=== PATIENT | female | born 1990 | race Caucasian/White ===

== ENCOUNTER 2022-02-10 08:00 | Outpatient (CLI) | payer OTHER ==
[2022-02-10 16:42] LABS: BILIRUBIN,URINE NEGATIVE (NEGATIVE); GLUCOSE, URINE (UA) NEGATIVE (NEGATIVE); KETONES,URINE (UA) NEGATIVE (NEGATIVE); LEUKOCYTE ESTERASE, URINE NEGATIVE (NEGATIVE); NITRITE,URINE NEGATIVE (NEGATIVE); OCCULT BLOOD,URINE NEGATIVE (NEGATIVE); PROTEIN,URINE NEGATIVE (NEGATIVE); UROBILINOGEN,URINE 1 (NORMAL) E.U./dL (NORMAL)
[2022-02-10 16:47] LABS: CLARITY,URINE CLEAR (CLEAR)
[2022-02-10 17:02] LABS: BACTERIA,URINE Moderate /HPF (None Seen); RBC,URINE 0-5 /HPF (0-5); SQUAMOUS EPITHELIAL CELL,UR MOD Squamous (<= Few); WBC,URINE 0-3 /HPF (0-5)
[2022-02-11 00:21] LABS: CHLAMYDIA TRACHOMATIS DNA NEGATIVE (NEGATIVE); NEISSERIA GONORRHOEAE DNA NEGATIVE (NEGATIVE)
== END 2022-02-10 23:59 | disposition home or self-care (01) ==
LOC: LAB 08:00
PROVIDERS: ATTEND Nurse Practitioner
DX: Z32.01 Encounter for pregnancy test, result positive (principal)
CPT/HCPCS: 81001; 87086; 87491; 87591; 87661

== ENCOUNTER 2022-02-16 13:40 | Outpatient (CLI) | payer OTHER ==
--- NOTE | 2022-02-16 17:23 | Ultrasound Report ---
PROCEDURE: OB First Trimester INDICATIONS: POSITIVE TEST OUTSIDE/PRIOR DATING DATA: Last menstrual period (LMP): 12/01/2021. LMP-based estimated date of delivery (ELINA): 09/07/2022. First dating scan (date and location): 02/16/2022. Estimated date of delivery (ELINA) from first dating scan: 09/29/2022. TECHNIQUE: Real-time scanning was performed of the fetus and maternal pelvic organs, with image documentation. COMPARISON: None. FINDINGS: Embryo: Present with crown-rump length of 1.54 cm corresponding to a gestational age of 7 weeks 6 da ys. Heart rate: 166 bpm Measurement variability in dating: +/- 4 weeks by LMP, +/- 7 days by mean sac diameter (use before 6 weeks gestation if crown-rump length not able to be measured), +/- 5 days by crown-rump length (6-12 weeks gestation). Maternal organs: Left ovarian cyst / possible corpus luteal cyst measures 4.3 cm. IMPRESSION: Single living intrauterine with crown-rump length corresponding to a gestational age of 7 w eeks 6 days, discordant from clinical dates. Reviewed by: Kar Feliciano MD on 02/16/2022 5:22 PM PDT Approved by: Kar Feliciano MD on 02/16/2022 5:22 PM PDT Station ID: [id number]
== END 2022-02-16 13:41 | disposition home or self-care (01) ==
LOC: DI 13:40
PROVIDERS: ATTEND Nurse Practitioner
DX: Z34.90 Encounter for supervision of normal pregnancy, unspecified, unspecified trimester (principal); Z36.89 Encounter for other specified antenatal screening

== ENCOUNTER 2022-02-24 12:07 | Outpatient (CLI) | payer OTHER ==
[2022-02-24 12:29] LABS: BASOPHILS % (AUTO) 0.5 %; EOSINOPHILS # (AUTO) 0.2 10^3/uL (0.0-0.7); EOSINOPHILS % (AUTO) 2.2 %; HCT - HEMATOCRIT 39.5 % (37.0-47.0); HGB - HEMOGLOBIN 13.1 g/dL (12.0-16.0); LYMPHOCYTES # (AUTO) 1.9 10^3/uL (1.5-3.5); LYMPHOCYTES % (AUTO) 24.1 %; MEAN CORPUSCULAR HEMOGLOBIN 28.9 pg (27.0-31.0); MEAN CORPUSCULAR HGB CONC 33.2 g/dL (32.0-36.0); MEAN CORPUSCULAR VOLUME 87.2 fL (81.0-99.0); MEAN PLATELET VOLUME 11.1 fL (7.9-10.8); MONOCYTES # (AUTO) 0.5 10^3/uL (0.0-1.0); MONOCYTES % (AUTO) 6.8 %; NEUTROPHILS # (AUTO) 5.1 10^3/uL (1.5-6.6); NEUTROPHILS % (AUTO) 65.9 %; PLT - PLATELET COUNT 173 10^3/uL (130-450); RED BLOOD COUNT 4.53 10^6/uL (4.20-5.40); RED CELL DISTRIBUTION WIDTH 12.5 % (12.0-15.0); WHITE BLOOD COUNT 7.8 x10^3/uL (4.8-10.8)
[2022-02-25 03:09] LABS: HBsAG SCREEN Negative (Negative); HCV AB <0.1 s/co ratio (0.0-0.9)
[2022-02-25 04:08] LABS: HIV SCREEN 4TH GENERATION Non Reactive (Non Reactive)
[2022-02-25 05:11] LABS: RPR Non Reactive (Non Reactive)
[2022-02-25 07:09] LABS: VARICELLA-ZOSTER AB IGG 818 index (Immune >165)
== END 2022-02-24 12:08 | disposition home or self-care (01) ==
LOC: LAB 12:07
PROVIDERS: ATTEND Nurse Practitioner
DX: Z34.90 Encounter for supervision of normal pregnancy, unspecified, unspecified trimester (principal); Z36.89 Encounter for other specified antenatal screening
CPT/HCPCS: 36415; 85025; 86592; 86762; 86787; 86803; 86850; 86900; 86901; 87340; 87389

== ENCOUNTER 2022-04-20 08:00 | Outpatient (CLI) | payer OTHER ==
[2022-04-20 22:15] LABS: BACTERIAL VAGINOSIS DNA NEGATIVE (NEGATIVE); CANDIDA GLABRATA DNA NEGATIVE (NEGATIVE); CANDIDA GROUP DNA NEGATIVE (NEGATIVE); CANDIDA KRUSEI DNA NEGATIVE (NEGATIVE); TRICHOMONAS VAGINALIS DNA NEGATIVE (NEGATIVE)
== END 2022-04-20 23:59 | disposition home or self-care (01) ==
LOC: LAB.WC 08:00
PROVIDERS: ATTEND Obstetrics & Gynecology
DX: N89.8 Other specified noninflammatory disorders of vagina (principal)
CPT/HCPCS: 81514

== ENCOUNTER 2022-05-19 13:10 | Outpatient (CLI) | payer OTHER ==
[2022-05-23 12:09] LABS: AFP MOM See interpretation. (.); AFP VALUE 47.3 ng/mL (.); DIA MOM See interpretation. (.); DIA VALUE 124.54 pg/mL (.); DSR (BY AGE) 1 IN 570 (.); DSR (SECOND TRIMESTER) 1 IN See interpretation. (.); GESTAT. AGE METHOD As provided (.); HCG MOM See interpretation. (.); HCG VALUE 14622 mIU/mL (.); MATERNAL AGE AT EDD 31.5 yr (.); OPEN SPINA BIFIDA RISK 1 IN See interpretation. (.); RESULTS Report (.); TEST RESULTS See interpretation. (.); TRISOMY 18 RISK See interpretation. (.); UE3 MOM See interpretation. (.); UE3 VALUE 2.21 ng/mL (.)
== END 2022-05-19 13:11 | disposition home or self-care (01) ==
LOC: LAB 13:10
PROVIDERS: ATTEND Obstetrics & Gynecology
DX: Z34.90 Encounter for supervision of normal pregnancy, unspecified, unspecified trimester (principal)
CPT/HCPCS: 81511

== ENCOUNTER 2022-06-07 18:48 | Outpatient (CLI) | payer OTHER ==
--- NOTE | 2022-06-08 10:43 | Ultrasound Report ---
PROCEDURE: OB Detailed Eval INDICATIONS: SUPERVISION OF OUTSIDE/PRIOR DATING DATA: Last menstrual period (LMP): 12/01/2021. LMP-based estimated date of delivery (ELINA): 09/07/2022. First dating scan (date and location): 02/16/2022. Estimated date of delivery (ELINA) from first dating scan: 09/29/2022. The below data below was generated using the ultrasound ELINA of 09/29/2022 TECHNIQUE: Real-time scanning was performed of the fetus, with image documentation and biometric measurements. Endovaginal scanning: Not performed COMPARISON: 02/16/2022 FINDINGS: General: A single living intrauterine gestation is present. Presentation: Transverse Placenta: Placental position is anterior, without previa. Amniotic fluid index: 14.0 cm, normal for gestational age. heart rate: 158 beats per minute. Maternal cervical canal: 5.2 cm long; normal length is 2.5 cm or more. biometrics: Biparietal diameter: 5.9 cm, 24 weeks 1 day Head circumference: 22.8 cm, 24 weeks 6 days Abdominal circumference: 19.2 cm, 23 weeks 6 days Femur length: 4.1 cm, 23 weeks 1 day Estimated gestational age from initial scan: 23 weeks 5 days. Composite gestational age from present scan: 24 weeks 0 days Estimated weight and percentile: 621 g, 41st percentile Measurement variability in biometric dating: +/- 10 days from 12-20 weeks gestation, +/- 2 weeks from 20-30 weeks gestation, +/- 3 weeks at 30 weeks gestation or later. Anatomic survey: Neuro: Lateral ventricles not well visualized. Cisterna magna is normal at 3-11 mm. Cerebellum is no rmal in size and morphology. Nuchal skin fold: Normal at less than 6 mm between 14 and 20 weeks gestational age. Face: Nose and lips are normal. Profile not well visualized. Spine: No evidence for spina bifida. Heart: 4-chambered heart is present. Unremarkable left ventricular outflow tract. Right ventricular outflow tract not well visualized. Diaphragm: Not well visualized. Stomach: Left-sided stomach is present. Kidneys: No hydronephrosis. Normal is less than 5 mm in 2nd trimester, less than 7 mm in 3rd trimester. Cord: 3 vessel cord has orthotopic insertion. Bladder: Normal in size. Extremities: All 4 extremities are visualized. IMPRESSION: 1. Single living intrauterine . 2. lateral ventricles, profile, right ventricular outflow tract, and diaphragm are not well vis ualized. Attention on follow-up is recommended. 3. Estimated weight at the 41st percentile. Reviewed by: Kar Feliciano MD on 06/08/2022 10:42 AM [facility] Approved by: Kar Feliciano MD on 06/08/2022 10:42 AM PST Station ID: [id number]
== END 2022-06-07 18:49 | disposition home or self-care (01) ==
LOC: DI 18:48
PROVIDERS: ATTEND Obstetrics & Gynecology
DX: Z34.02 Encounter for supervision of normal first pregnancy, second trimester (principal); Z3A.24 24 weeks gestation of pregnancy

== ENCOUNTER 2022-08-08 13:25 | Outpatient (CLI) | payer OTHER ==
--- NOTE | 2022-08-08 18:30 | Ultrasound Report ---
PROCEDURE: OB F/U or Repeat INDICATIONS: EXCESSIVE WEIGHT GAIN IN OUTSIDE/PRIOR DATING DATA: Last menstrual period (LMP): 12/01/2021. LMP-based estimated date of delivery (ELINA): 09/07/2022. First dating scan (date and location): 02/16/2022. Estimated date of delivery (ELINA) from first dating scan: 09/07/2022. The below data below was generated using the working ELINA of 09/29/2022 TECHNIQUE: Real-time scanning was performed of the fetus, with image documentation and biometric measurements. Endovaginal scanning: None COMPARISON: None. FINDINGS: General: A single living intrauterine gestation is present. Presentation: Vertex Placenta: Placental position is anterior, without previa. Amniotic fluid index: 17.9 cm, 72nd percentile for gestational age. heart rate: 160 beats per minute. Maternal cervical canal: 4.0 cm long; normal length is 2.5 cm or more. biometrics: Biparietal diameter: 8.6 cm, 34 week 1 day Head circumference: 32.1 cm, 36 week 2 day Abdominal circumference: 31.0 cm, 35 week 0 day Femur length: 5.9 cm, 31 week 0 day Estimated gestational age from initial scan: 32 week 4 day Composite gestational age from present scan: 34 week 1 day Estimated weight and percentile: 2311.6 g, 81.9 percentile Measurement variability in biometric dating: +/- 10 days from 12-20 weeks gestation, +/- 2 weeks from 20-30 weeks gestation, +/- 3 weeks at 30 weeks gestation or more. Other: Not applicable. IMPRESSION: Single live intrauterine consistent with a 32 week 4 day gestation by current ultrasound Reviewed by: Santiago Johnson MD on 08/08/2022 5:29 PM [facility] Approved by: Santiago Johnson MD on 08/08/2022 5:29 PM [facility] Station ID: [id number]
== END 2022-08-08 13:26 | disposition home or self-care (01) ==
LOC: DI 13:25
PROVIDERS: ATTEND Obstetrics & Gynecology
DX: O26.03 Excessive weight gain in pregnancy, third trimester (principal); Z3A.32 32 weeks gestation of pregnancy

== ENCOUNTER 2022-08-29 17:26 | Outpatient (CLI) | payer OTHER ==
--- NOTE | 2022-08-30 17:03 | Ultrasound Report ---
PROCEDURE: OB F/U or Repeat INDICATIONS: US SCREENIGN FOR MALFORMATION OUTSIDE/PRIOR DATING DATA: Last menstrual period (LMP): 12/01/2021. LMP-based estimated date of delivery (ELINA): 09/07/2022. First dating scan (date and location): 02/16/2022. Estimated date of delivery (ELINA) from first dating scan: 09/07/2022. The below data below was generated using the working ELINA of 09/29/2022 TECHNIQUE: Real-time scanning was performed of the fetus, with image documentation and biometric measurements. Endovaginal scanning: Not indicated COMPARISON: 08/08/2022 and 06/07/2022 FINDINGS: General: A single living intrauterine gestation is present. Presentation: Vertex Placenta: Placental position is anterior, without previa. Amniotic fluid index: 17.4 cm, normal for gestational age. heart rate: 145 beats per minute. Maternal cervical canal. Cervix is closed. Cervical the tail is not well seen on this study. Estimated gestational age from initial scan: 35 weeks, 4 days. Other: facial profile is visualized and is within normal limits. Limited evaluation of left amita tricle due to advanced gestational age. IMPRESSION: 1. Single live intrauterine gestation with fetus in vertex presentation. heart rate is 145 bpm. Normal amount of amniotic fluid. 2. facial profile is within normal limits. Left ventricle evaluation is limited due to advanced gestational age and is grossly normal. Reviewed by: Mario Pearson MD on 08/30/2022 5:01 PM PDT Approved by: Mario Pearson MD on 08/30/2022 5:01 PM PDT Station ID: [id number]
== END 2022-08-29 17:27 | disposition home or self-care (01) ==
LOC: DI 17:26
PROVIDERS: ATTEND Obstetrics & Gynecology
DX: Z36.3 Encounter for antenatal screening for malformations (principal)

== ENCOUNTER 2022-09-06 08:00 | Outpatient (CLI) | payer OTHER | END 2022-09-06 23:59 | disposition home or self-care (01) | LOC: LAB.WC 08:00 | PROVIDERS: ATTEND Obstetrics & Gynecology | DX: Z36.85 Encounter for antenatal screening for Streptococcus B (principal) | CPT/HCPCS: 87797 ==

== ENCOUNTER 2022-09-26 05:35 | Inpatient (IN) | payer OTHER ==
[2022-09-26] MEDS ORDERED: GABAPENTIN 100 MG CAPSULE PO SCH (06:00)
[2022-09-26] MEDS ORDERED: LACTATED RINGERS 1,000 ML IV SCH ×2 (06:00→09:00)
[2022-09-26] MEDS ORDERED: CELECOXIB 100 MG CAPSULE PO SCH (06:00)
[2022-09-26 06:40] LABS: BASOPHILS # (AUTO) 0.1 10^3/uL (0.0-0.1); BASOPHILS % (AUTO) 0.7 %; EOSINOPHILS # (AUTO) 0.1 10^3/uL (0.0-0.7); EOSINOPHILS % (AUTO) 1.1 %; HCT - HEMATOCRIT 34.7 % (37.0-47.0); HGB - HEMOGLOBIN 11.2 g/dL (12.0-16.0); LYMPHOCYTES % (AUTO) 22.2 %; MEAN CORPUSCULAR HGB CONC 32.3 g/dL (32.0-36.0); MEAN CORPUSCULAR VOLUME 80.7 fL (81.0-99.0); MEAN PLATELET VOLUME 12.2 fL (7.9-10.8); MONOCYTES # (AUTO) 0.6 10^3/uL (0.0-1.0); MONOCYTES % (AUTO) 6.9 %; NEUTROPHILS # (AUTO) 6.1 10^3/uL (1.5-6.6); NEUTROPHILS % (AUTO) 68.3 %; PLT - PLATELET COUNT 194 10^3/uL (130-450); RED CELL DISTRIBUTION WIDTH 14.6 % (12.0-15.0)
[2022-09-26] MEDS ORDERED: GABAPENTIN 400 MG CAPSULE PO SCH (06:42)
[2022-09-26] MEDS: ACETAMINOPHEN 500 MG TABLET PO SCH ×3 (06:49→23:05)
[2022-09-26] MEDS ORDERED: SODIUM CHLORIDE 0.9% 10 ML VIAL IVP ONE (07:08)
[2022-09-26] MEDS ORDERED: ePHEDrine 50 MG/ML VIAL IVP ONE (07:08)
--- NOTE | 2022-09-26 07:16 | ANESTHESIA ---
Pre-Anesthesia VS, & Labs - Diagnosis repeat section - Procedure section Vital Signs: Temp Pulse Resp BP Pulse Ox O2 Flow Rate 36.6 C 100 18 127/92 H 09/26/22 05:47 09/26/22 05:47 09/26/22 05:47 09/26/22 05:47 Height: 5 ft 4 in Weight (kg): 120.656 kg Body Mass Index: 45.6 BMI Classification: Morbidly Obese - NPO >8 hours - Is Patient ?: Yes - Lab Results Current Lab Results: Laboratory Tests 09/26/22 06:25: POC Whole Bld Glucose 84 09/26/22 06:20: WBC 9.0, RBC 4.30, Hgb 11.2 L, Hct 34.7 L, MCV 80.7 L, MCH 26.0 L, MCHC 32.3, RDW 14.6, Plt Count 194, MPV 12.2 H, Neut # (Auto) 6.1, Lymph # (Auto) 2.0, [place] # (Auto) 0.6, Eos # (Auto) 0.1, Baso # (Auto) 0.1, Absolute Nucleated RBC 0.00, Nucleated RBC % 0.0 Lab results reviewed: Yes Fish Bones: 09/26/22 06:20 Home Medications and Allergies Home Medications: Ambulatory Orders Pnv No.95/Ferrous Fum/Folic AC [ Caplet] 1 cap DAILY 09/26/22 Active Medications Acetaminophen (Acetaminophen 500 Mg Tablet) 1,000 mg PO ONCE RINA Stop: 09/27/22 05:59 Last Admin: 09/26/22 06:49 Dose: 1,000 mg Celecoxib (Celecoxib 100 Mg Capsule) 400 mg PO ONCE RINA Stop: 09/27/22 05:59 Last Admin: 09/26/22 06:49 Dose: 400 mg Gabapentin (Gabapentin 400 Mg Capsule) 800 mg PO ONCE RINA Stop: 09/26/22 07:42 Last Admin: 09/26/22 06:48 Dose: 800 mg Lactated Ringer's (Lr) 1,000 mls @ 0 mls/hr IV .Q0M RINA Last Admin: 09/26/22 06:29 Dose: 100 mls/hr Pnv No.95/Ferrous Fum/Folic AC [ Caplet] 1 cap DAILY 09/26/22 Allergies/Adverse Reactions: Allergies Allergy/AdvReac Type Severity Reaction Status Date / Time ondansetron [From Zofran] Allergy Unknown Verified 09/26/22 00:55 Anes History & Medical History - Anesthetic History Anesthesia Complications: reports: No previous complications - Medical History Cardiovascular: reports: None Pulmonary: reports: None Smoking Status: Never smoker - Surgical History General: reports: Other (gastric sleeve) Exam General: Alert, Oriented x3, Cooperative Dental: WNL Neck Mobility: Normal Mallampati classification: II Thyromental Distance: greater than 6 cm Respiratory: Lungs clear Cardiovascular: Regular rate Plan Anesthesia Type: Spinal Consent for Procedure(s) Verified and Reviewed: Yes Code Status: Attempt Resuscitation ASA classification: 3-Severe systemic disease Is this case an emergency?: No
--- NOTE | 2022-09-26 07:34 | HISTORY & PHYSICAL EXAMINATION ---
Admit History - : 4 Parity: 2 : 1 Risk/History: positive: Previous Smoking Status: Never smoker - Mother's Labs Mother's Blood Type: positive: O Mother's RH: positive: Positive GBS: positive: Group B Step Negative Rubella Status: positive: Immune - Other Maternal History Other Maternal History: HPI: Patient is a 32-year-old -0-1-2 at 39 weeks 4 days gestation presenting for repeat section. She has good movement. Denies loss of fluid. No GOMEZ/BV or RUQP. No vaginal bleeding. Denies nausea and vomiting. Denies urinary urgency or dysuria. All other symptoms reviewed and were negative except per HPI. Course LMP: 12/01/2021 ELINA by LMP: 09/07/2022 02/16/2022@ 7+6 wks/ NOT c/w dates Final ELINA: 09/29/2022 Problems: C/S x2 Obesity: Excessive weight gain in : Ultrasound at 32 weeks showed 81st percentile, 2311 g. History of bariatric surgery Pre- weight: 220 BMI: 39.93 O pos Rubella: immune RPR: negative VZV: immune Genetic testing: Quad screen Negative FAS:WNL, but ventricles, profile, cardiac outflow and diaphragm not well seen. F/U ardiac outflow tracts, chest/diaphragm, stomach, abdomen, kidneys, bladder well seen and normal. Cerebral ventricles, facial profile remain and evaluated. 08/29 FU: Facial profile, lateral ventricles within normal limits. Glucola: ordered 06/05- declined. A1C pending Influenza:02/24 TDAP:07/14 GBS Negative HSV: Denies in self and partner Breast Pump Rx:07/14 MOD: RCD 09/26 pp contraception: will get vasectomy, she declines salpingectomy at RCD pap:2019 normal per pt, repeat pos PMH Obesity BMI 45 PSH section x2 Gastric sleeve: 2020 Tonsils and adenoids: 2005 OB History -0-1-2 1. 2013, SAB 2. 07/2016, section, male, breech 3. 03/2019, section, breech SH Denies tobacco, alcohol, drugs Family History Mother: Non-Hodgkin's lymphoma Maternal grandmother: problems with anesthesia Maternal grandfather: PR Allergies Zofran: Rash Medications vitamins Physical exam: General: Alert, oriented, no acute distress Head: Normal cephalic atraumatic Eyes: PERRLA, extraocular motions intact. Respiratory: Normal rate of respiration. No accessory muscle use, normal respiratory effort. Cardiovascular: Regular rate and rhythm Abdomen: Gravid, nontender, nondistended Extremities: Normal range of motion Neuro: Oriented x3. Normal movements Psych: Appropriate mood and affect. Normal judgment and insight FHT: 14 bpm baseline, moderate variability, accelerations present, no decelerations. [place]:Quiescent. Plan 32-year-old -0-1-2 at 39 weeks 4 days gestation for repeat section 1. Repeat section - section was recommended. Risks, benefits and alternatives were discussed including but not limited to infection, bleeding that may require blood products or hysterectomy for life saving measures, injury to surrounding organs including but not limited to bowel, bladder, ureters, tubes and ovaries and/or the baby. Should injury occur it could require longer/additional surgery to repair. The patient stated understanding and desired to proceed. All questions were answered posed by patient. -Cefazolin: 3 g for surgical prophylaxis 2. Obesity 3. BMI 45 4. Excessive weight gain in Meds/Allgy - Home Medications Home Medications: Ambulatory Orders Medication Instructions Recorded Confirmed Pnv No.95/Ferrous Fum/Folic AC 1 cap DAILY 09/26/22 09/26/22 [ Caplet] - Allergies Allergies/Adverse Reactions: Allergies Allergy/AdvReac Type Severity Reaction Status Date / Time ondansetron [From Zofran] Allergy Unknown Verified 09/26/22 00:55 Physical - Abdominal Exam Vital Signs: Temp Pulse Resp BP Pulse Ox O2 Flow Rate 97.9 F 100 18 127/92 H 09/26/22 05:47 09/26/22 05:47 09/26/22 05:47 09/26/22 05:47 Plan for Labor - Plan For Labor I expect patient to be DC'd or transferred within 96 hours.: Yes
[2022-09-26 08:14] LABS: ESTIMATED AVERAGE GLUCOSE 97 mg/dL (70-100)
[2022-09-26] MEDS ORDERED: OXYTOCIN 10 UNIT/ML VIAL ONE (08:44)
[2022-09-26] MEDS ORDERED: METOCLOPRAMIDE 10 MG/2 ML VIAL ONE (08:44)
[2022-09-26] MEDS ORDERED: ATROPINE ABBOJECT 1 MG/10 ML SYRINGE IVP PRN (08:59)
[2022-09-26] MEDS ORDERED: NALOXONE 0.4 MG/ML VIAL IVP PRN (08:59)
[2022-09-26] MEDS ORDERED: MORPHINE 2 MG/ML CARPUJECT IVP PRN (08:59)
[2022-09-26] MEDS ORDERED: HYDROmorphone 0.5 MG/0.5 ML SYRINGE IVP PRN (08:59)
[2022-09-26] MEDS ORDERED: ePHEDrine 50 MG/ML VIAL IVP PRN (08:59)
[2022-09-26] MEDS ORDERED: fentaNYL 100 MCG/2 ML VIAL IVP PRN (08:59)
[2022-09-26] MEDS ORDERED: ONDANSETRON ODT 4 MG TABLET TL PRN (09:30)
[2022-09-26] MEDS ORDERED: SIMETHICONE CHEW 80 MG TABLET PO PRN (09:30)
[2022-09-26] MEDS ORDERED: OXYTOCIN/SODIUM CHLORIDE 500 ML IV PRN (09:30)
[2022-09-26] MEDS ORDERED: SODIUM CHLORIDE FLUSH 0.9% 10 ML SYRINGE IVP PRN (09:30)
--- NOTE | 2022-09-26 09:30 | OPERATIVE REPORT ---
Operative Report - General Admit Date: 09/26/22 Procedure Date: 09/26/22 Planned Procedure: Repeat low-transverse section Pre-Op Diagnosis: Previous low transverse section Procedure Performed: Repeat low-transverse section Post Op Diagnosis: Previous low transverse section - Procedure Note Primary Surgeon: Sancho Mcdonough MD Secondary Surgeon: CHELE Arroyo Anesthesia Provider: Nila Hood CRNA Anesthesia Technique: Spinal Pathology: None IV Fluids (mL): 1,500 Estimated Blood Loss (mL): 700 Urine Output (mL): 75 Complications: None - Other Other Information/Narrative: Preoperative diagnoses 39 weeks gestation Previous low-transverse section Obesity BMI 45 Postoperative diagnoses Same Status post repeat low-transverse section Delivery of live merritt section was recommended. Risks, benefits and alternatives were discussed including but not limited to infection, bleeding that may require blood products or hysterectomy for life saving measures, injury to surrounding organs including but not limited to bowel, bladder, ureters, tubes and ovaries and/or the baby. Should injury occur it could require longer/additional surgery to repair. The patient stated understanding and desired to proceed. All questions were answered posed by patient. Prior to being taken to the OR, 3 grams of cefazolin IV was administered. The patient was taken to the operating room where regional anesthesia was found to be adequate. She was then prepared and draped in the usual sterile fashion in the dorsal supine position with a leftward tilt displacing the uterus. Lal was draining to gravity. SCDs were on bilateral lower extremities. A pfannenstiel skin incision was then made with the scalpel and carried through to the underlying layer of fascia. A second incision was made above the scar and the old scar was removed due to the thickness of the scar tissue. The fascia was incised in the midline and the incision extended laterally with the Cruz scissors. The superior aspect of the facial incision was then grasped with the Jessenia clamps, elevated and the underlying rectus muscles dissected off sharply. Attention was then turned to the inferior aspect of this incision which in a similar fashion was grasped, elevated with the Jessenia clamps and the rectus muscle dissected off sharply. A moderate mount of scar tissue was dissected to adequately expose the rectus muscles. The rectus muscles were in the midline. The peritoneum identified, grasped with the pick-ups and entered sharply with the Metzenbaum scissors. The peritoneal incision was then extended superiorly and inferiorly with good visualization of the bladder. The bladder blade was inserted. The vesicouterine peritoneum was identified, grasped with the pick-ups, and entered sharply with Metzenbaum scissors. This incision was then extended laterally and the bladder flap created digitally. The bladder blade was reinserted. The lower uterine segment was identified and incised in a transverse fashion with the scalpel. The uterine incision was then extended bluntly laterally. Artificial rupture of membranes demonstrated clear fluid. The bladder blade was removed. The fetus was in a cephalic presentation. The infants head delivered atraumatically. The anterior shoulders were delivered followed by the posterior shoulders then the remainder of the body. The infants mouth and nose were bulb suctioned. The umbilical cord was clamped times two and cut. The infant was handed to the pediatric team. The placenta was removed with gentle traction. Oxytocin were added to IVF and allowed to run freely. The uterus was exteriorized and cleared of all clots and debris. The uterine incision was inspected and found to be without any extensions and was repaired with 0 Vicryl in a running, locked fashion. A second imbricating layer was performed. 2 additional [id number] stitches were required to make the uterus hemostatic. Upon inspection, the repaired hysterotomy was found to be hemostatic. The uterus was firm and returned to the abdomen. The gutters were cleared of all clots and debris. The fascia was reapproximated with 0 Vicryl in a running fashion. The subcutaneous tissue was closed with 2-0 Vicryl in 2 layers. The skin was closed in a subcuticular fashion with 3-0 Monocryl. The patient tolerated the procedure well. Sponge, lap and needle counts were correct times three. The patient was taken to the recovery room in stable condition. I appreciate the assistance of CHELE Bejarano during this procedure, and the assistance in retraction, visualization, dissection, and overall assistance during the case were instrumental to the patient's wellbeing.
[2022-09-26] MEDS: LACTATED RINGERS 1,000 ML IV SCH ×2 (10:00→20:00)
[2022-09-26] MEDS: KETOROLAC 30 MG/ML VIAL IVP SCH ×3 (11:52→23:59)
--- NOTE | 2022-09-26 11:58 | ANESTHESIA POST OP EVALUATION ---
Anesthesia Post Eval - Post Anesthesia Eval Vitals: Last Vital Signs Temp 36.1 C L 09/26/22 10:35 Pulse 72 09/26/22 10:35 Resp 13 09/26/22 10:35 BP 112/70 09/26/22 10:35 Pulse Ox 100 09/26/22 10:35 O2 Flow Rate CV Function Including HR & BP: Stable Pain Control: Satisfactory Nausea & Vomiting: Negative Mental Status: Baseline Respiratory Status: Airway Patent Hydration Status: Satisfactory Anesthesia Complications: None
[2022-09-26] MEDS: oxyCODONE 5 MG TABLET PO PRN ×2 (15:02→18:56)
[2022-09-26] MEDS: SODIUM CHLORIDE FLUSH 0.9% 10 ML SYRINGE IVP SCH (17:38)
[2022-09-26] MEDS: DOCUSATE SODIUM 100 MG CAPSULE PO SCH (23:05)
[2022-09-27] MEDS: SODIUM CHLORIDE FLUSH 0.9% 10 ML SYRINGE IVP SCH (01:02)
[2022-09-27 05:57] LABS: BASOPHILS # (AUTO) 0.1 10^3/uL (0.0-0.1); BASOPHILS % (AUTO) 0.6 %; EOSINOPHILS # (AUTO) 0.1 10^3/uL (0.0-0.7); EOSINOPHILS % (AUTO) 0.8 %; HCT - HEMATOCRIT 31.8 % (37.0-47.0); HGB - HEMOGLOBIN 9.8 g/dL (12.0-16.0); LYMPHOCYTES # (AUTO) 1.8 10^3/uL (1.5-3.5); LYMPHOCYTES % (AUTO) 22.3 %; MEAN CORPUSCULAR HGB CONC 30.8 g/dL (32.0-36.0); MEAN CORPUSCULAR VOLUME 84.4 fL (81.0-99.0); MEAN PLATELET VOLUME 11.8 fL (7.9-10.8); MONOCYTES # (AUTO) 0.6 10^3/uL (0.0-1.0); MONOCYTES % (AUTO) 6.8 %; NEUTROPHILS # (AUTO) 5.7 10^3/uL (1.5-6.6); PLT - PLATELET COUNT 134 10^3/uL (130-450); RED BLOOD COUNT 3.77 10^6/uL (4.20-5.40); RED CELL DISTRIBUTION WIDTH 14.8 % (12.0-15.0); WHITE BLOOD COUNT 8.2 x10^3/uL (4.8-10.8)
[2022-09-27] MEDS: LACTATED RINGERS 1,000 ML IV SCH (06:00)
[2022-09-27] MEDS: KETOROLAC 30 MG/ML VIAL IVP SCH (06:04)
[2022-09-27] MEDS: ACETAMINOPHEN 500 MG TABLET PO SCH ×3 (07:10→15:41)
[2022-09-27] MEDS: ENOXAPARIN 40 MG/0.4 ML SYRINGE SUBQ SCH (09:15)
[2022-09-27] MEDS: DOCUSATE SODIUM 100 MG CAPSULE PO SCH ×2 (09:16→21:09)
[2022-09-27] MEDS: IBUPROFEN 600 MG TABLET PO SCH ×2 (12:20→21:09)
[2022-09-28] MEDS: ACETAMINOPHEN 500 MG TABLET PO SCH ×2 (00:15→09:03)
[2022-09-28] MEDS: oxyCODONE 5 MG TABLET PO PRN ×2 (00:16→05:11)
[2022-09-28] MEDS: IBUPROFEN 600 MG TABLET PO SCH ×2 (03:08→09:02)
--- NOTE | 2022-09-28 08:45 | PROVIDER PROGRESS NOTE ---
Subjective - Prog Note Date Prog Note Date: 09/27/22 Prog Note Time: 08:20 - Subjective Pt reports feeling: Improved Subjective: Late entry. Subjective Patient reports she is doing well. Lochia appropriate. Denies heavy bleeding. Ambulating. Pelvic and abdominal pain well-controlled. Tolerating oral intake. Diet: Regular. Voiding without difficulty. Passing flatus. Denies BM. Patient is bonding with baby in room Breast feeding going well. Denies feeling lightheaded, dizzy or excessively fatigued. control: Partner vasectomy Objective General: Alert, oriented, no apparent distress. Cardiovascular: Regular rate. Regular rhythm. Lungs: No increased work of breathing. Abdomen: Uterus firm. Below umbilicus. No guarding or rebound. Extremities: No pain on palpation. No cords palpated. Distal pulses intact. Incision: Clean, dry, and intact. Assessment and Plan Postoperative day 1. -Routine care -Anticipate discharge tomorrow Objective - Vital Signs/Intake & Output Reviewed Vital Signs: Yes Vital Signs: Temperature 98.2, heart rate 80, blood pressure 116/69, respiratory rate 16 Intake & Output: Intake & Output 09/25/22 09/26/22 09/27/22 23:59 23:59 23:59 Intake Total 1355 Output Total 3092 995 Balance -5706 -443 - Lab Results Fish Bones: 09/27/22 05:49
--- NOTE | 2022-09-28 08:46 | DISCHARGE SUMMARY ---
Discharge Summary Admit Date: 09/26/22 Discharge Date: 09/28/22 Discharging Provider: Sancho Mcdonough MD Code Status: Attempt Resuscitation Condition at Discharge: Good Discharge Disposition: 01 Home, Self Care - DIAGNOSES Admission Diagnoses: 39 weeks gestation The previous low-transverse section Obesity Discharge Diagnoses with Status of Each Condition: 39 weeks gestation Previous low-transverse section Obesity Status post repeat low-transverse section Delivery of live merritt - HPI History of Present Illness: Subjective Patient reports she is doing well. Lochia appropriate. Denies heavy bleeding. Ambulating. Pelvic and abdominal pain well-controlled. Tolerating oral intake. Diet: Regular. Voiding without difficulty. Passing flatus. Denies BM. Patient is bonding with baby in room Breast feeding going well. Denies feeling lightheaded, dizzy or excessively fatigued. Control: Partner vasectomy Objective General: Alert, oriented, no apparent distress. Cardiovascular: Regular rate. Regular rhythm. Lungs: No increased work of breathing. Abdomen: Uterus firm. Below umbilicus. No guarding or rebound. Extremities: No pain on palpation. No cords palpated. Distal pulses intact. Incision: Clean, dry, and intact. - HOSPITAL COURSE Hospital Course: Patient was admitted at 39 weeks for repeat low-transverse section. section was unremarkable. She had an uneventful course and was discharged on day 2 with . weight: 3486 g - ALLERGIES Allergies/Adverse Reactions: Allergies Allergy/AdvReac Type Severity Reaction Status Date / Time ondansetron [From Zofran] Allergy Unknown Verified 09/26/22 00:55 - MEDICATIONS Home Medications: Ambulatory Orders Medication Instructions Recorded Confirmed Pnv No.95/Ferrous Fum/Folic AC 1 cap DAILY 09/26/22 09/26/22 [ Caplet] Acetaminophen [Acetaminophen Extra 1,000 mg PO Q8H PRN #60 tablet 09/28/22 Strength] Docusate Sodium 100Mg Capsule 100 - 200 mg PO BID PRN #60 cap 09/28/22 [Colace 100Mg Capsule] Ibuprofen [Motrin] 600 mg PO Q6H PRN #30 tab 09/28/22 oxyCODONE [Roxicodone] 5 mg PO Q4H PRN #20 tablet 09/28/22 - LABS Result Diagrams: 09/27/22 05:49 - FOLLOW UP Follow Up: Sancho Mcdonough MD in 1 week. - TIME SPENT Time Spent in Discharge (Minutes): 20
--- NOTE | 2022-09-28 08:50 | Discharge Plan ---
Discharge Plan Problem Reviewed?: Yes Disposition: Home, Self Care Condition: Good Diet: Regular Instruction Topics: C Section Dc No Smoking: If you smoke, Please STOP! Call for help. Follow-up with: LUIS FELIPE JONES PA [Primary Care Provider] - Sancho Mcdonough MD [Provider Admit Priv/Credential] -
[2022-09-28] MEDS: DOCUSATE SODIUM 100 MG CAPSULE PO SCH (09:02)
[2022-09-28] MEDS: ENOXAPARIN 40 MG/0.4 ML SYRINGE SUBQ SCH (09:03)
[2022-09-28 09:04] VITALS: BP 131/80
--- NOTE | 2022-09-28 12:37 | Labor Flowsheet ---
Labor Flowsheet Datetime Report Generated by CPN: 09/28/2022 12:36 Datetime: 09/26/2022 11:18 VAGINAL EXAM Membranes Ruptured Date/Time: 09/26/2022 08:44 Membranes Rupture Method: Artificial Amniotic Fluid Color: Clear
== END 2022-09-28 11:30 | disposition home or self-care (01) | DRG 788 ==
LOC: FBP 05:35
PROVIDERS: ADMIT Obstetrics & Gynecology; ATTEND Obstetrics & Gynecology
PROC: 10D00Z1 Extraction of Products of Conception, Low, Open Approach (ICD-10-PCS; principal; 2022-09-26 07:30)
DX: O34.211 Maternal care for low transverse scar from previous cesarean delivery (principal); N85.8 Other specified noninflammatory disorders of uterus; Z3A.39 39 weeks gestation of pregnancy; Z37.0 Single live birth; O99.214 Obesity complicating childbirth; E66.01 Morbid (severe) obesity due to excess calories; O26.03 Excessive weight gain in pregnancy, third trimester
CPT/HCPCS: 36415; 83036; 85025; 86850; 86900; 86901; 86920; A9270; J1650; J2765; J7040; J7120